=== PATIENT | female | born 2000 | race Caucasian/White ===

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

== ENCOUNTER 2018-01-06 08:58 | Emergency (ER) | payer OTHER ==
[2018-01-06 09:03] VITALS: BP 108/69; PULSE 89; TEMP 98.2; BMI 24.5
--- NOTE | 2018-01-06 09:06 | PDOC ---
History of Present Illness - General Chief Complaint: Back Pain Stated Complaint: LBP Time Seen by Provider: 01/06/18 09:04 History Source: Patient Exam Limitations: No Limitations - History of Present Illness Initial Comments: CHIEF COMPLAINT: 17 y/o afebrile female c/o low back pain this morning. HISTORY OF PRESENT ILLNESS: The patient states her back her with movement. She took 3 ibuprofen and the pain has mostly resolved. She denies fall/trauma to back, numbness/tingling in LEs. 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 Vital signs on arrival are within normal limits. REVIEW OF SYSTEMS: GENERAL/CONSTITUTIONAL: No fever GENITOURINARY: No dysuria, frequency, or change in urination. MUSCULOSKELETAL: +low back pain. No joint or muscle swelling or pain. No neck pain. SKIN: No rash or easy bruising. NEUROLOGIC: No headache, vertigo, loss of consciousness, or loss of sensation. PHYSICAL EXAM: GENERAL: The patient is awake, alert, and fully oriented, in no acute distress. ABDOMINAL: No abd TTP. No flank pain. No suprapubic TTP. BACK: No midline lumbar spine TTP or step offs. Pain reproduced with palpation of b/l lumbar paravertebral muscles. Full flexion, extension, lateral movements of lumbar spine without pain. No CVA TTP b/l. EXTREMITIES: Normal range of motion, no edema. NEUROLOGICAL: Normal speech, normal gait. CN II-XII grossly intact. No saddle anesthesia. Past History - Past Medical History Allergies/Adverse Reactions: Allergies Allergy/AdvReac Type Severity Reaction Status Date / Time No Known Allergies Allergy Verified 01/06/18 09:03 Home Medications: Ambulatory Orders NK [No Known Home Medication] 01/06/18 COPD: No - Suicide/Smoking/Psychosocial Hx Smoking History: Never smoked *Physical Exam - Vital Signs Last Vital Signs Temp Pulse Resp BP Pulse Ox 98.2 F 89 18 108/69 97 01/06/18 09:01 01/06/18 09:01 01/06/18 09:01 01/06/18 09:01 01/06/18 09:01 Medical Decision Making - Medical Decision Making A/P: 17 y/o female with musculoskeletal LBP on exam. Patient's pain has resolved with ibuprofen. Suggested heat, massage, stretching and more ibuprofen if needed. The patient verbalizes understanding of all instructions, has no further questions and is awaiting discharge. *DC/Admit/Observation/Transfer Diagnosis at time of Disposition: Low back pain Qualifiers: Chronicity: acute Back pain laterality: bilateral Sciatica presence: without sciatica Qualified Code(s): M54.5 - Low back pain - Discharge Dispostion Disposition: HOME Condition at time of disposition: Good - Referrals Referrals: Willy Decker MD [Staff Physician] - - Patient Instructions Printed Discharge Instructions: DI for Low Back Pain Additional Instructions: Discharge Instructions: -Use heating pad and massage to help with pain -Stretch your low back multiple times per day -Take ibuprofen every 6 hours with food if needed for pain -Follow up with Dr. Decker within 1 week - Post Discharge Activity Forms/Work/School Notes: Back to Work
== END 2018-01-06 09:40 | disposition home or self-care (01) ==
LOC: JERFT 08:58
DX: M54.5 Low back pain (principal)
CPT/HCPCS: 99281-25

== ENCOUNTER 2018-08-03 02:15 | Emergency (ER) | payer OTHER | END 2018-08-03 03:13 | disposition home or self-care (01) | LOC: FER 02:15 ==

== ENCOUNTER 2018-12-19 23:50 | Emergency (ER) | payer SELFPAY ==
[2018-12-20 00:03] VITALS: BP 124/70; BMI 26.4
[2018-12-20] MEDS ORDERED: KETOROLAC TROMETHAMINE 60 MG/2 ML VIAL IM ONE (00:06)
[2018-12-20] MEDS ORDERED: KETOROLAC TROMETHAMINE 60 MG/2 ML VIAL ONE (00:10)
--- NOTE | 2018-12-20 00:11 | PDOC ---
History of Present Illness - General Chief Complaint: Pain Stated Complaint: PELVIC PAIN Time Seen by Provider: 12/20/18 00:05 History Source: Patient Exam Limitations: No Limitations - History of Present Illness Initial Comments: 12/20/18 00:06 This is a 18-year-old female who comes in complaining of pelvic pain and fever. Patient saw her [employer] today and was diagnosed with bacterial vaginosis started on Flagyl and Diflucan. Patient has taken 2 doses. Patient did not take anything for her fever or pain. Patient did advise any nausea vomiting or diarrhea. Patient is otherwise healthy. In addition to the pelvic exam patient also had a urinalysis that was negative for infection. Allergies: as per nursing notes Past Medical History: none Social history: Lives with family. No smoking. No alcohol. No illicit drugs. Surgical history: None General: No fevers or chills, no weakness, no weight loss HEENT: No change in vision. No sore throat,. No ear pain CardioVascular: no chest discomfort. No shortness of breath Respiratory:No cough, or wheezing. Gastrointestinal: no nausea, vomiting, diarrhea or constipation, No rectal bleeding Genitourinary: No dysuria, hematuria, or frequency, pelvic pain Musculoskeletal: No joint or muscle pain or swelling Neurologic: No headache, vertigo, dizziness or loss of consciousness Psychiatric: nor depression Skin: No rashes or easy bruising Endocrine: no increased thirst or abnormal weight change Allergic: no skin or latex allergy All other systems reviewed and normal GENERAL: The patient is awake, alert, and fully oriented, in no acute distress. HEAD: Normal with no signs of trauma. EYES: Pupils equal, round and reactive to light, extraocular movements intact, sclera anicteric, conjunctiva clear. EXTREMITIES:atraumatic, Normal range of motion, no edema. NEUROLOGICAL: Normal speech, normal gait. PSYCH: Normal mood, normal affect. SKIN: Warm, Dry, normal turgor, no rashes or lesions noted. Assessment and plan: This is a 18-year-old female with fever and pelvic pain. Patient is already being treated and saw her [employer] today. Patient was given Toradol and told to alternate acetaminophen with ibuprofen every 3 hours for the next 24 hours. Patient will follow-up with her OB if not improved by tomorrow afternoon or return to the ED. Past History - Past Medical History Allergies/Adverse Reactions: Allergies Allergy/AdvReac Type Severity Reaction Status Date / Time No Known Allergies Allergy Verified 01/06/18 09:03 Home Medications: Ambulatory Orders NK [No Known Home Medication] 12/19/18 COPD: No - Immunization History Immunization Up to Date: Yes - Psycho Social/Smoking Cessation Hx Smoking History: Unknown if ever smoked Have you smoked in the past 12 months: No Number of Cigarettes Smoked Daily: 0 Information on smoking cessation initiated: No Hx Alcohol Use: No Drug/Substance Use Hx: No *Physical Exam - Vital Signs Last Vital Signs Temp Pulse Resp BP Pulse Ox 102.9 F H 139 H 14 124/70 100 12/20/18 00:00 12/20/18 00:00 12/20/18 00:00 12/20/18 00:00 12/20/18 00:00 Discharge - Discharge Information Problems reviewed: Yes Clinical Impression/Diagnosis: Bacterial vaginosis Condition: Good Disposition: HOME - Admission No - Follow up/Referral - Patient Discharge Instructions Additional Instructions: Alternate acetaminophen with ibuprofen every 3-4 hours for fever and pain. Take 3 ibuprofen tablets, and alternate them with 2 extra strength Tylenol tablets every 3 hours. Drink plenty of fluid and stay well-hydrated.. Return to the emergency department immediately with ANY new, persistent or worsening symptoms. Continue any medications as previously prescribed by your physician. You should follow up with your OB doctor as soon tomorrow afternoon if not improved and still have fever and pain. . Please make sure your doctor reviews the results of your emergency evaluation. Thank you for coming to the Emergency Department today for your care. It was a pleasure to see you today. Please note that your evaluation is INCOMPLETE until you follow-up with your doctor. - Post Discharge Activity
[2018-12-20 01:09] VITALS: PULSE 105; TEMP 101.9
== END 2018-12-20 01:08 | disposition home or self-care (01) ==
LOC: FER 23:50
PROC: 3E0233Z Introduction of Anti-inflammatory into Muscle, Percutaneous Approach (ICD-10-PCS; principal; 2018-12-19)
DX: N76.0 Acute vaginitis (principal)
CPT/HCPCS: 99282-25

== ENCOUNTER 2020-10-19 12:08 | Inpatient (IN) | payer OTHER ==
[2020-10-19] MEDS ORDERED: ELECTROLYTE-148 SOLN 1,000 ML IV SCH (13:00)
[2020-10-19] MEDS ORDERED: AMPICILLIN - 2 GM in SODIUM CHLORIDE 100 ML IVPB ONE (13:19)
[2020-10-19 13:35] VITALS: BMI 36.0
[2020-10-19] MEDS ORDERED: AMPICILLIN SODIUM 2 GM VIAL ONE (13:37)
[2020-10-19 14:14] LABS: INR 0.86 (0.83-1.09); PROTHROMBIN TIME (PATIENT) 10.4 SEC (9.7-13.0)
[2020-10-19 14:17] LABS: ACTIVATED PTT 25.7 SECONDS (25.2-36.5)
[2020-10-19] MEDS ORDERED: PCA PUMP NR ONE ×4 (14:34→22:25)
[2020-10-19] MEDS ORDERED: FENTANYL/BUPIVACAINE/NS/PF - PCEA - 50 ML DISP.SYRIN EP ONE ×2 (14:34→19:01)
[2020-10-19] MEDS ORDERED: NALOXONE HCL 0.4 MG/ML VIAL IVPUSH PRN (14:40)
[2020-10-19] MEDS ORDERED: BUPIVACAINE HCL/PF 0.25% (2.5MG/ML) 10 ML VIAL ONE ×2 (14:57→16:41)
[2020-10-19] MEDS: FENTANYL/BUPIVACAINE/NS/PF - PCEA - 50 ML DISP.SYRIN EP SCH ×2 (15:10→19:05)
[2020-10-19] MEDS ORDERED: AMPICILLIN SODIUM 1 GM VIAL ONE (17:33)
[2020-10-19] MEDS: AMPICILLIN - 1 GM in SODIUM CHLORIDE 100 ML IVPB SCH ×2 (17:45→22:18)
[2020-10-19] MEDS ORDERED: OXYTOCIN 30 UNITS in 0.9% NS 30 UNIT/500 ML INFUS.BAG IVPB SCH (18:00)
[2020-10-19] MEDS ORDERED: OXYTOCIN 30 UNITS in 0.9% NS 30 UNIT/500 ML INFUS.BAG IVPB ONE (18:03)
[2020-10-19] MEDS ORDERED: OXYTOCIN 20 UNITS in 0.9% NS 20 UNIT/1,000 ML INFUS.BAG IV ONE (20:28)
[2020-10-19] MEDS ORDERED: OXYTOCIN 10 UNITS/ML VIAL ONE (21:08)
[2020-10-19] MEDS ORDERED: ACETAMINOPHEN 325 MG TABLET (FP) ONE (22:39)
[2020-10-19] MEDS ORDERED: IBUPROFEN 600 MG TABLET (FP) PO ONE (22:39)
[2020-10-19] MEDS: IBUPROFEN 600 MG TABLET (FP) PO PRN (22:40)
[2020-10-19] MEDS ORDERED: BENZOCAINE 28 GM HEMORRHOIDAL OINTMENT TP PRN (23:00)
[2020-10-19] MEDS ORDERED: BISACODYL 10 MG SUPP.RECT RC PRN (23:00)
[2020-10-19] MEDS ORDERED: ACETAMINOPHEN 325 MG TABLET (FP) PO PRN (23:00)
[2020-10-19] MEDS ORDERED: METHYLERGONOVINE MALEATE 0.2 MG/1 ML AMP IM PRN (23:00)
[2020-10-19] MEDS ORDERED: WITCH HAZEL 50% (TUCKS) 40 PAD/JAR PAD TP PRN (23:00)
[2020-10-19] MEDS ORDERED: BENZOCAINE 20% 57 GM BOTTLE TP PRN (23:00)
[2020-10-20] MEDS ORDERED: OXYTOCIN 20 UNITS in 0.9% NS 20 UNIT/1,000 ML INFUS.BAG IV SCH (00:15)
[2020-10-20] MEDS: AMPICILLIN - 1 GM in SODIUM CHLORIDE 100 ML IVPB SCH ×2 (03:37→06:48)
[2020-10-20] MEDS: IBUPROFEN 600 MG TABLET (FP) PO PRN (07:42)
[2020-10-20 08:52] LABS: BASO % 0.2 % (0-2.0); EOS % 0.7 % (0-4.5); HEMATOCRIT 30.7 % (32.4-45.2); HEMOGLOBIN 10.7 GM/dL (10.7-15.3); LYMPH % 11.8 % (8-40); MCH 32.6 pg (25.7-33.7); MCHC 34.8 g/dl (32.0-36.0); MEAN CELL VOLUME 93.8 fl (80-96); MEAN PLT VOLUME 9.2 fl (7.5-11.1); MONO % 6.6 % (3.8-10.2); NEUT % 80.7 % (42.8-82.8); RBC 3.27 M/mm3 (3.60-5.2); RDW 14.9 % (11.6-15.6); WHITE BLOOD COUNT 12.1 K/mm3 (4.0-10.0)
[2020-10-20 10:39] LABS: PLATELET ESTIMATE DECREASED
[2020-10-20 10:40] LABS: PLATELET COUNT 98 10^3/uL (134-434)
[2020-10-20] MEDS ORDERED: SENNOSIDES/DOCUSATE COMBO (SENNA PLUS) TABLET (UD) PO PRN (22:00)
[2020-10-21 10:59] VITALS: BP 133/93; PULSE 90; TEMP 98
== END 2020-10-21 12:55 | disposition home or self-care (01) | DRG 560 ==
LOC: JLDR 12:08 → J3W 23:00
PROVIDERS: ADMIT Specialist; ATTEND Specialist
PROC: 10E0XZZ Delivery of Products of Conception, External Approach (ICD-10-PCS; principal; 2020-10-19)
PROC: 0HQ9XZZ Repair Perineum Skin, External Approach (ICD-10-PCS; 2020-10-19)
DX: O70.0 First degree perineal laceration during delivery (principal); O69.81X0 Labor and delivery complicated by cord around neck, without compression, not applicable or unspecified; O99.824 Streptococcus B carrier state complicating childbirth; Z3A.38 38 weeks gestation of pregnancy; Z37.0 Single live birth
CPT/HCPCS: 36415; 59409; 85025; 85610; 85730; 86780; 86850; 86900; 86901; C9803; U0003; U0005